=== PATIENT | female | born 1955 | race African-American/Black ===

== ENCOUNTER 2017-09-18 17:02 | Emergency (ER) | payer OTHER ==
[~2017-09-18] VITALS: Ht 154.9 cm; Wt 71.4 kg
[~2017-09-18 17:02] MED LIST: ALPR1TAB7 PO; CARI350 PO; CLON2 PO; FLUO-191 PO; MORP30 PO; OXYC10 PO; PERCT10 PO; ZOLP10TA7 PO
[2017-09-18] MEDS ORDERED: METO25XL PO (17:12)
[2017-09-18] MEDS ORDERED: SIMV-260 PO (17:12)
[2017-09-18] MEDS ORDERED: ASPI-556 PO (17:12)
[2017-09-18] MEDS ORDERED: CILO100T PO (17:12)
[2017-09-18] MEDS ORDERED: TOPI25 PO (17:12)
[2017-09-18] MEDS ORDERED: QUET200T PO (17:12)
[2017-09-18] MEDS ORDERED: TRAZ-144 PO (17:12)
[2017-09-18] MEDS ORDERED: ACETAMINOPHEN 500 MG TABLET PO ONE (19:45)
[2017-09-18] MEDS ORDERED: ALBUTEROL SULFATE 2.5 MG/0.5 ML NEB SOLUTION NEB ONE (19:50)
[2017-09-18 19:57] LABS: INFLUENZA TYPE B NEGATIVE FOR TYPE B (NEGATIVE)
[2017-09-18 20:22] LABS: BASOPHILS % (AUTO) 0.2 % (0.0-2.0); EOSINOPHILS % (AUTO) 0.7 % (1.0-6.0); HEMOGLOBIN 10.9 g/dL (12.0-16.0); LYMPHOCYTES # (AUTO) 2.1 K/uL (1.0-4.8); LYMPHOCYTES % (AUTO) 19.1 % (22.0-44.0); MEAN CORPUSCULAR HEMOGLOBIN 30.4 pg (26.0-34.0); MEAN CORPUSCULAR HGB CONC 33.1 G/dL (31.0-37.0); MEAN CORPUSCULAR VOLUME 92 fL (80-100); MONOCYTES # (AUTO) 0.8 K/uL (0.1-1.0); MONOCYTES % (AUTO) 7.2 % (2.0-9.0); NEUTROPHILS # (AUTO) 8.1 K/uL (1.8-7.7); NEUTROPHILS % (AUTO) 72.8 % (40.0-70.0); PLATELET COUNT (AUTO) 245 K/uL (150-450); RED BLOOD CELL COUNT(AUTO) 3.59 MIL/uL (4.00-5.20); WHITE BLOOD COUNT (AUTO) 11.1 K/uL (4.5-11.0)
[2017-09-18] MEDS ORDERED: 0.9% SODIUM CHLORIDE 5 ML NEB SOLUTION NEB ONE (20:25)
[2017-09-18 20:34] LABS: PROTHROMBIN TIME 10.5 SEC (9.4-11.6)
[2017-09-18 20:35] LABS: ANION GAP 10 mmol/L (8-16); CALCIUM, TOTAL 9.2 mg/dL (8.8-10.5); CARBON DIOXIDE 26 mmol/L (22-29); CHLORIDE 103 mmol/L (98-107); CREATININE 0.87 mg/dL (0.60-1.30); GLOMERULAR FILTR. RATE CALC > 60 mL/min (>60); SODIUM SERUM 139 mmol/L (136-145); UREA NITROGEN, BLOOD 11 mg/dL (7-18)
[2017-09-18 20:49] LABS: ALANINE AMINOTRANSFERASE 25 U/L (12-78); ALBUMIN 3.5 g/dL (3.4-5.0); ASPARTATE AMINOTRANSFERASE 46 U/L (15-37); BILIRUBIN,TOTAL 0.2 mg/dL (0.1-1.0); TOTAL PROTEIN, SERUM 7.5 g/dL (6.4-8.2)
[2017-09-18] MEDS ORDERED: LEVOFLOXACIN 500 MG/D5% WATER 100 ML IV ONE (21:30)
[2017-09-18 21:46] VITALS: BP 128/78
== END 2017-09-18 22:11 | disposition home or self-care (01) ==
LOC: EMS 17:04
DX: J40 Bronchitis, not specified as acute or chronic (principal); I10 Essential (primary) hypertension; F17.210 Nicotine dependence, cigarettes, uncomplicated; Z88.1 Allergy status to other antibiotic agents; Z88.5 Allergy status to narcotic agent; Z88.8 Allergy status to other drugs, medicaments and biological substances
CPT/HCPCS: 36415; 71020; 80053; 85025; 85610; 85730; 87804; 94640; 96365; 99285; J1956; J7613

== ENCOUNTER 2017-11-21 11:18 | Emergency (ER) | payer OTHER ==
[~2017-11-21] VITALS: Ht 154.9 cm; Wt 76.4 kg
[~2017-11-21 11:18] MED LIST changes: -ALPR1TAB7 PO; +ASPI-556 PO; -CARI350 PO; +CILO100T PO; -FLUO-191 PO; +METO25XL PO; +QUET200T PO; +SIMV-260 PO; +TOPI25 PO; +TRAZ-144 PO; -ZOLP10TA7 PO
[2017-11-21] MEDS ORDERED: FLUORESCEIN SODIUM 1 MG STRIP ONE (12:12)
[2017-11-21] MEDS ORDERED: PROPARACAINE HCL 0.5% 15 ML OPHTHALMIC SOLUTION OD ONE (12:45)
[2017-11-21 14:26] VITALS: BP 137/76
== END 2017-11-21 14:34 | disposition home or self-care (01) ==
LOC: EMS 11:21
DX: H20.9 Unspecified iridocyclitis (principal); I11.9 Hypertensive heart disease without heart failure; F17.210 Nicotine dependence, cigarettes, uncomplicated; Z79.82 Long term (current) use of aspirin; Z88.6 Allergy status to analgesic agent; Z88.5 Allergy status to narcotic agent; Z88.1 Allergy status to other antibiotic agents
CPT/HCPCS: 99283

== ENCOUNTER 2021-10-30 12:00 | Emergency (ER) | payer OTHER ==
[~2021-10-30] VITALS: Ht 154.9 cm; Wt 81.8 kg
[~2021-10-30 12:00] MED LIST changes: +CLON-598 PO; -CLON2 PO; -OXYC10 PO; +OXYC10TA59 PO; -PERCT10 PO; -TRAZ-144 PO; +TRAZ-252 PO
[2021-10-30 18:08] LABS: BASOPHILS % (AUTO) 1.4 % (0.0-2.0); EOSINOPHILS % (AUTO) 2.3 % (1.0-6.0); HEMATOCRIT 34.3 % (36-46); HEMOGLOBIN 11.2 g/dL (12.0-16.0); LYMPHOCYTES % (AUTO) 35.5 % (22.0-44.0); MEAN CORPUSCULAR HEMOGLOBIN 29.9 pg (26.0-34.0); MEAN CORPUSCULAR HGB CONC 32.7 G/dL (31.0-37.0); MEAN CORPUSCULAR VOLUME 92 fL (80-100); MONOCYTES # (AUTO) 0.7 K/uL (0.1-1.0); MONOCYTES % (AUTO) 7.9 % (2.0-9.0); NEUTROPHILS # (AUTO) 4.4 K/uL (1.8-7.7); NEUTROPHILS % (AUTO) 52.9 % (40.0-70.0); PLATELET COUNT (AUTO) 297 K/uL (150-450); RED BLOOD CELL COUNT(AUTO) 3.74 MIL/uL (4.00-5.20); RED CELL DISTRIBUTION WIDTH 15.3 % (11.5-14.5)
[2021-10-30 18:17] LABS: ANION GAP 8 mmol/L (8-16); CALCIUM, TOTAL 9.5 mg/dL (8.8-10.5); CARBON DIOXIDE 28 mmol/L (22-29); CHLORIDE 105 mmol/L (98-107); CREATININE 1.03 mg/dL (0.60-1.30); GLOMERULAR FILTR. RATE CALC > 60 mL/min (>60); GLUCOSE,RANDOM 100 mg/dL (70-110); SODIUM SERUM 141 mmol/L (136-145); UREA NITROGEN, BLOOD 21 mg/dL (7-18)
[2021-10-30 18:23] LABS: ALANINE AMINOTRANSFERASE 20 U/L (12-78); ALBUMIN 3.7 g/dL (3.4-5.0); ALKALINE PHOSPHATASE 84 U/L (46-116); ASPARTATE AMINOTRANSFERASE 12 U/L (15-37); BILIRUBIN,TOTAL 0.3 mg/dL (0.1-1.0); LIPASE 200 U/L (73-393)
[2021-10-30] MEDS ORDERED: FAMOTIDINE 20 MG TABLET PO ONE (19:30)
[2021-10-30] MEDS ORDERED: MAG HYDROX/AL HYDROX/SIMETH 30 ML SUSP UDCUP PO ONE (19:30)
[2021-10-30 19:42] VITALS: BP 113/58
[2021-10-30] MEDS ORDERED: FAMO20 PO (20:02)
== END 2021-10-30 20:13 | disposition home or self-care (01) ==
LOC: EMS 12:00
DX: R10.12 Left upper quadrant pain (principal); I25.10 Atherosclerotic heart disease of native coronary artery without angina pectoris; J44.9 Chronic obstructive pulmonary disease, unspecified; F32.9 Major depressive disorder, single episode, unspecified; I11.9 Hypertensive heart disease without heart failure; E78.00 Pure hypercholesterolemia, unspecified; G89.29 Other chronic pain; F17.210 Nicotine dependence, cigarettes, uncomplicated; Z90.710 Acquired absence of both cervix and uterus; Z88.6 Allergy status to analgesic agent; Z88.5 Allergy status to narcotic agent; Z88.8 Allergy status to other drugs, medicaments and biological substances; Z79.82 Long term (current) use of aspirin
CPT/HCPCS: 71045; 76700; 80053; 83690; 84484; 85025; 93005; 99285; 36415-L1; 36415-TC